=== PATIENT | female | born 1970 | race Caucasian/White ===

== ENCOUNTER → 2017-01-12 | Outpatient (CLI) | payer OTHER ==
[2017-01-12 16:16] LABS: APPEARANCE CLEAR/COLORLESS
[2017-01-12 16:19] LABS: RED CELL DILUTION 1
[2017-01-12 16:20] LABS: RED CELL AREA COUNTED 18; RED CELL COUNT 1 /MM^3 (0-1); WBC AREA COUNTED 18; WBC DILUTION 1; WHITE CELL COUNT 0 /MM^3 (0-5); WHITE CELL RAW COUNT 0
[2017-01-12 16:46] LABS: CSF EOSINOPHILS 0 % (0-25); MONO RAW COUNT 1; MONONUCLEAR WBC'S 100 % (50-90); POLYNUCLEAR WBC'S 0 % (0-3)
[2017-01-14 22:39] LABS: Albumin, Serum 4.3 g/dL (3.5-4.9); IgG Index, CSF 0.46 index (<0.66); Synthesis Rate IgG, CSF -3.5 mg/24 h (-9.9-3.3)
== END | disposition home or self-care (01) ==
LOC: RAD 14:49
PROVIDERS: Student in an Organized Health Care Education/Training Program
PROC: 009U3ZZ Drainage of Spinal Canal, Percutaneous Approach (ICD-10-PCS; principal; 2017-01-12)
DX: G37.9 Demyelinating disease of central nervous system, unspecified (principal)
CPT/HCPCS: 62270; 77003; 82164 90; 82945; 83873 90; 83916 90; 84157; 84166 90; 86617 90; 86618 90; 87070; 87205; 89051

== ENCOUNTER 2017-06-01 09:43 | Day surgery (SDC) | payer OTHER ==
[~2017-06-01] VITALS: Ht 170.2 cm; Wt 74.8 kg
[~2017-06-01 09:43] MED LIST: AMITRIPTYLINE H25 MG PO; BUSPAR7.5 MG PO; CENTRUM FLAVOR1 EAC1 PO; DULOXETINE HCL30 MG PO; DULOXETINE HCL60 MG PO; LYRICA100 MG PO; LYRICA50 MG PO; ZANTAC150 MG PO
[2017-06-01 10:41] VITALS: BP 132/68
[2017-06-01 16:58] VITALS: BP 124/68
[2017-06-01 20:09] VITALS: BP 115/66
[2017-06-01 23:50] VITALS: BP 108/53
[2017-06-02 04:09] VITALS: BP 117/55
[2017-06-02 06:40] LABS: BASOPHIL (%) 0.1 % (0-1); EOSINOPHIL (%) 0 % (0-5); HEMATOCRIT 31.4 % (36.0-46.0); IMMATURE GRANULOCYTE (%) 0.5 % (0.0-0.7); LYMPHOCYTE COUNT 1.5 K/uL (1.0-2.8); MCH 26.3 PG (29.0-34.0); MCHC 31.5 G/DL (30.0-36.0); MCV 83.5 FL (83-99); MONOCYTE (%) 7.6 % (3-12); MONOCYTE COUNT 0.9 K/uL (0-0.8); NEUTROPHIL (%) 78.8 % (45-76); PLATELET COUNT 282 K/uL (156-360); RBC DIS.WIDTH-CV 14.1 % (11.8-14.6); RBC DIS.WIDTH-SD 42.9 % (39-53); RED BLOOD COUNT 3.76 M/uL (3.80-5.20); WHITE BLOOD COUNT 11.4 K/uL (4.1-10.2)
[2017-06-02 06:49] LABS: HEMOGLOBIN 9.9 G/DL (11.9-15.5)
[2017-06-02 07:05] LABS: CHLORIDE 107 MEQ/L (99-109); CREATININE 0.8 MG/DL (0.6-1.3); GFR ESTIMATE (CALCULATED) > 59 mL/min/; GLUCOSE 119 mg/dL (70-99); SODIUM 140 MEQ/L (136-147); UREA NITROGEN (BUN) 10 mg/dL (9-23)
[2017-06-02 08:00] VITALS: BP 116/69
== END 2017-06-02 09:56 | disposition home or self-care (01) ==
LOC: SDC 09:43 → 2SOUTH 14:25 → 2EAST 14:25 → 2SOUTH 14:25 → ENRESERV 14:32 → SDC 15:42 → 2EAST 16:27 → ENPENDDIS 06-02 → 2EAST 06-02 09:56
PROVIDERS: Obstetrics & Gynecology Gynecology
DX: N92.1 Excessive and frequent menstruation with irregular cycle (principal); N94.6 Dysmenorrhea, unspecified; G89.29 Other chronic pain; R10.2 Pelvic and perineal pain; D25.9 Leiomyoma of uterus, unspecified; N80.0 Endometriosis of uterus; N80.3 Endometriosis of pelvic peritoneum; N83.202 Unspecified ovarian cyst, left side; N83.8 Other noninflammatory disorders of ovary, fallopian tube and broad ligament; E78.5 Hyperlipidemia, unspecified; Z82.49 Family history of ischemic heart disease and other diseases of the circulatory system
CPT/HCPCS: 80048; 85025; 87086; 88307; G0378; J0131; J0330; J0690; J1644; J2001; J2250; J2405; J3010; J3475; J7120; Q0175

== ENCOUNTER → 2017-11-15 | Outpatient (CLI) | payer OTHER | END | disposition home or self-care (01) | LOC: NUC 07:40 | DX: E04.2 Nontoxic multinodular goiter (principal) | CPT/HCPCS: 78014; 78999; A9516 ==

== ENCOUNTER → 2017-11-15 | Outpatient (CLI) | payer OTHER | END | disposition home or self-care (01) | LOC: RAD 14:48 | DX: E04.2 Nontoxic multinodular goiter (principal) | CPT/HCPCS: 76536 ==